=== PATIENT | male | born 1955 | race Caucasian/White ===

== ENCOUNTER 2017-02-06 10:36 | Day surgery (SDC) | payer BC ==
[~2017-02-06] VITALS: Ht 180.3 cm; Wt 124.3 kg
[~2017-02-06 10:36] MED LIST: BRILINTA90 MG PO; COZAAR100 MG PO; COZAAR25 MG PO; DAILY VALUE1 EACH PO; FISH OIL 1,001000 M1 PO; FISH OIL300 MG PO; LIPITOR20 MG PO; LIPITOR40 MG PO; LOPRESSOR25 MG PO; LOW DOSE ASPIRI81 M1 PO; METOPROLOL SUCC25 MG PO; NORCO 5/3251 TABLET PO; PRILOSEC OTC20 MG PO; [UNRECOGNIZED DRUG - OTHER] PO
[2017-02-06 11:09] VITALS: BP 141/98
[2017-02-06] MEDS ORDERED: PERCOCET 5/31 TABLET PO (17:27)
[2017-02-06] MEDS ORDERED: COLACE100 MG PO (17:27)
[2017-02-06 21:35] VITALS: BP 141/67
[2017-02-06 23:48] VITALS: BP 139/87
== END 2017-02-06 23:57 | disposition home or self-care (01) ==
LOC: SDC 10:36 → 2SOUTH 20:22 → 2EAST 21:28
PROC: 0WUF4JZ Supplement Abdominal Wall with Synthetic Substitute, Percutaneous Endoscopic Approach (ICD-10-PCS; principal; 2017-02-06)
DX: K43.6 Other and unspecified ventral hernia with obstruction, without gangrene (principal); I10 Essential (primary) hypertension; E78.00 Pure hypercholesterolemia, unspecified; E11.9 Type 2 diabetes mellitus without complications; G47.30 Sleep apnea, unspecified; K21.9 Gastro-esophageal reflux disease without esophagitis; I25.2 Old myocardial infarction; Z79.82 Long term (current) use of aspirin; Z87.891 Personal history of nicotine dependence; Z95.5 Presence of coronary angioplasty implant and graft
CPT/HCPCS: 88302; C1781; G0378; J0131; J0330; J0690; J1100; J1170; J1885; J2175; J2250; J2405; J2710; J3010; J7120